=== PATIENT | male | born 1975 | race Caucasian/White ===

== ENCOUNTER 2018-07-09 18:39 | Emergency (ER) | payer OTHER ==
[~2018-07-09] VITALS: Ht 185.4 cm; Wt 88.5 kg
[2018-07-09 19:02] VITALS: BP 145/81
[2018-07-09 19:35] LABS: BASOPHILS % (AUTO) 0 % (0-1); EOSINOPHILS % (AUTO) 0 % (1-7); LYMPHOCYTES # (AUTO) 0.44 x10^3/uL (1-3.4); LYMPHOCYTES % (AUTO) 8 % (22-44); MD NO; MEAN CORPUSCULAR HEMOGLOBIN 30.8 pg (27.5-34.5); MEAN CORPUSCULAR HGB CONC 34.5 g/dL (33.2-36.2); MEAN CORPUSCULAR VOLUME 89.3 fL (81-97); MONOCYTES # (AUTO) 0.47 x10^3/uL (0.2-0.8); MONOCYTES % (AUTO) 9 % (2-9); NEUTROPHILS # (AUTO) 4.27 x10^3/uL (1.8-6.8); NEUTROPHILS % (AUTO) 83 % (42-75); PLATELET COUNT 165 x10^3/uL (130-400); RED BLOOD COUNT 5.13 x10^6/uL (4.38-5.82); RED CELL DISTRIBUTION WIDTH 13.5 % (9.4-14.8)
[2018-07-09] MEDS ORDERED: ACETAMINOPHEN 500 MG TABLET ONE (19:35)
[2018-07-09 19:42] LABS: ANION GAP 9 mmol/L (5-15); CALCIUM 9.2 mg/dL (8.5-10.1); CHLORIDE 104 mmol/L (98-107); CREATININE 1.06 mg/dL (0.7-1.3)
[2018-07-09] MEDS ORDERED: ACETAMINOPHEN 500 MG TABLET PO ONE (20:00)
== END 2018-07-09 21:38 | disposition home or self-care (01) ==
LOC: ED 21:08
DX: R50.9 Fever, unspecified (principal)
CPT/HCPCS: 36415; 80048; 82040; 83605; 84145; 85025; 87040; 99284